=== PATIENT | female | born 1955 | race Caucasian/White ===

== ENCOUNTER → 2017-10-18 | Outpatient (CLI) | payer MEDICARE, OTHER ==
[~2017-10-18] MED LIST: ALFALFA600 MG PO; ALPRAZOLAM 0.50.5 M1 PO; ALPRAZOLAM PO; ALPRAZOLAM1 M1 PO; ANTIVERT25 MG PO; ASPIR 8181 MG PO; ASPIRIN EC81 M1 PO; ATORVASTATIN CA40 MG PO; AUGMENTIN 875875 M1 PO; AVELOX 400 MG400 MG OR; BACTRIM DS TAB1 EACH PO; BENTYL10 MG PO; BRILINTA90 MG PO; CALCIUM 600 +1 EAC1 PO; CALCIUM 600 +1 EAC9 PO; CALCIUM PO; CARISOPRODOL 3350 M1 PO; CARISOPRODOL 3350 MG PO; CATAPRES-TTS 10.1 M1 TRANSDERM; CELEXA 20 MG TA20 M1 PO; CELEXA 20 MG TA20 MG PO; CELEXA20 MG PO; CELEXA40 MG PO; CYMBALTA60 MG PO; DICLOFENAC SODI75 M1 PO; DICLOFENAC SODI75 MG PO; DICYCLOMINE HCL10 MG PO; DOLOPHINE HCL5 MG PO; DOXEPIN 75 MG C75 M1 PO; DOXEPIN PO; DOXYCYCLINE 10100 M1 PO; FLAX OIL1000 MG PO; FLEXERIL PO; FUROSEMIDE 40 M40 M1 PO; FUROSEMIDE 40 M40 MG PO; GLUCOPHAGE500 MG PO; GLUCOSAMINE &1 EACH PO; HYDROCODONE-AP1 EA10 PO; IRON325 PO; K-DUR 20 MEQ T20 MEQ PO; LEVOTHYROXIN0.137 M1 PO; LINZESS145 MCG PO; LINZESS290 MCG PO; LISINOPRIL5 MG OR; LOPRESSOR 50 MG50 M1 PO; LOPRESSOR PO; LOPRESSOR50 PO; LYRICA100 MG PO; LYRICA150 MG PO; METHADONE HCL5 MG PO; MULTIVITAMINS PO; NEPHROCAPS SOFT1 CAP; NITROGLYCERIN0.4 MG SUBLING; OMEPRAZOLE PO; ONDANSETRON HCL4 M2 PO; OXYCODON-ACETA1 EAC1; OXYCODONE HCL15 MG PO; OXYCONTIN10 M1; PLAVIX 300 MG300 M1 PO; PRILOSEC 20 MG20 MG PO; PRILOSEC40 MG PO; RANITIDINE HCL300 M1 PO; RANITIDINE PO; RED YEAST RICE600 M1 PO; ROXICODONE15 M1 PO; SKELAXIN 800 M800 M1 PO; SKELAXIN PO; STOOL SOFTENER100 M1 PO; SYNTHROID150 MCG PO; TOPROL XL50 MG PO; VENTOLIN HFA 1818 GM INH; VIT D-3 PO; VITAMIN D-32000 UNIT PO; VITAMIN D250000 UNIT PO; VITAMIN E1000 UNI3 PO; VITAMIN E400 UNI6 PO; VITAMIN E400 UNIT PO; VITAMIN E600 UNIT PO; XANAX1 MG PO; ZANAFLEX4 MG PO
== END ==
LOC: M.RAD 09:25
DX: M81.0 Age-related osteoporosis without current pathological fracture (principal); M85.9 Disorder of bone density and structure, unspecified; M19.90 Unspecified osteoarthritis, unspecified site; E78.2 Mixed hyperlipidemia; I10 Essential (primary) hypertension; Z78.0 Asymptomatic menopausal state; Z98.61 Coronary angioplasty status

== ENCOUNTER → 2018-01-09 | Outpatient (CLI) | payer MEDICARE, OTHER | LOC: M.RAD 14:46 | DX: Z12.31 Encounter for screening mammogram for malignant neoplasm of breast (principal) ==

== ENCOUNTER → 2018-07-25 | Outpatient (CLI) | payer MEDICARE, OTHER ==
--- NOTE | 2018-07-25 13:44 | EXE ---
[place] [address] STRESS ECHOCARDIOGRAM Name: CHAI MAYES Room: [facility]#: [id number] Admission: 07/25/18 Attend Phys: Rico Dejesus MD Discharge: Date of : 59 Date of Service: 07/25/18 1343 Report #: [id number] THIS REPORT FOR: //name// APPROVED REPORT Study performed: 07/25/2018 11:26:50 Exam: Dobutamine Stress Echo Indication: CAD Patient Location: Out-Patient Stress Nurse: Rebecca Bell RN Supervising Physician: Jasiel Reyes MD Ht: 5 ft 3 in HR: 81 bpm BP: 139/97 mmHg Medical History Cardiac Risk Factors: Hyperlipidemia, HTN, Tobacco History (Current/Recent), FHX of CAD Procedure The patient underwent a Pharmacological Stress Test using Dobutamine. Blood pressure, heart rate, and EKG were monitored. An Echocardiogram was performed by actuarial technician in four stages in quad fashion. At peak stress, four selected images were obtained and placed side by side with resting images for comparison. Stress Test Details Stress Test: Pharmacological Stress Test using Dobutamine. Reason for pharmacologic stress test: physical limitation. HR Resting HR: 81 bpm Max Heart Rate (APMHR): 159 bpm Max HR Achieved: 143 bpm Target HR (85% APMHR): 135 bpm % of APMHR: 89 Recovery HR: 94 bpm HR response to stress: Normal HR response to stress BP Resting BP: 139/97 mmHg Max BP: 131/77 mmHg Recovery BP: 123/79 mmHg ECG Resting ECG: sinus rhythm left [place] [address] STRESS ECHOCARDIOGRAM Name: CHAI MAYES Room: [facility]#: [id number] Admission: 07/25/18 Attend Phys: Rico Dejesus MD Discharge: Date of : 59 Date of Service: 07/25/18 1343 Report #: [id number] Stress ECG: no ischemic st-f changes Clinical Reason for Termination: Completed protocol Pre-Stress Echo The resting Echocardiogram showed normal left ventricular contractility with an estimated Ejection Fraction of about 55-60%. Normal wall motion in all segments on baseline images. Post-Stress Echo The stress Echocardiogram showed normal left ventricular contractility with an estimated Ejection Fraction of about >70%. Normal augmentation of wall motion in all segments on post stress images. Conclusion Clinical Response: Non-ischemic Stress ECG Response: Non-ischemic Stress Echo Images: Non-ischemic Other Information Study Quality: Good <ELECTRONICALLY SIGNED> By: Jasiel Reyes MD, [facility] 07/25/18 1343 1343 42 Jasiel Reyes MD, FACC /INF
== END ==
LOC: M.CRD 10:36
DX: I25.10 Atherosclerotic heart disease of native coronary artery without angina pectoris (principal)

== ENCOUNTER → 2019-02-04 | Outpatient (CLI) | payer BC | LOC: M.RAD 01-10 14:00 | DX: Z12.31 Encounter for screening mammogram for malignant neoplasm of breast (principal) ==

== ENCOUNTER → 2019-04-02 | Outpatient (CLI) | payer BC | LOC: M.MRI 14:35 | DX: M48.061 Spinal stenosis, lumbar region without neurogenic claudication (principal); M43.16 Spondylolisthesis, lumbar region; M47.816 Spondylosis without myelopathy or radiculopathy, lumbar region; M89.38 Hypertrophy of bone, other site; M51.26 Other intervertebral disc displacement, lumbar region ==

== ENCOUNTER 2019-05-26 21:42 | Inpatient (IN) | payer BC ==
[~2019-05-26] VITALS: Ht 160 cm; Wt 104.3 kg
[2019-05-26 21:42] VITALS: BP 185/96
[~2019-05-26 21:42] MED LIST changes: -LEVOTHYROXIN0.137 M1 PO; +PRILOSEC OTC20 MG PO; +SYNTHROID137 MC1 PO
[2019-05-26] MEDS ORDERED: TOPROL XL25 MG PO (21:57)
[2019-05-26 22:13] LABS: ABSOLUTE BASOPHILS 0.1 thou/uL (0.0-0.2); ABSOLUTE EOSINOPHILS 0.6 thou/uL (0.0-0.7); ABSOLUTE MONOCYTES 0.6 thou/uL (0.0-1.2); ABSOLUTE NEUTROPHILS 5.7 thou/uL (1.6-8.1); BASOPHILS 1.4 %; EOSINOPHILS 6.4 %; HEMATOCRIT 32.1 % (37.0-47.0); HEMOGLOBIN 10.3 gm/dL (12.0-15.0); LYMPHOCYTES 22.4 %; MCH 27.1 pg (26.0-34.0); MCHC 32.2 g/dL (28.0-37.0); MCV 84.3 fL (80.0-100.0); MONOCYTES 7.1 %; MPV 6.9 fl. (7.2-11.1); NUCLEATED RBCS 0 /100WBC; PLATELET COUNT* 363 thou/uL (150-400); POLYS 62.7 %; RBC 3.81 mil/uL (4.20-5.00); RDW-CV 19.4 % (10.5-14.5)
[2019-05-26 22:20] LABS: ANION GAP 5 mmol/L (7-16); BUN 9 mg/dL (7-18); CALCIUM 8.8 mg/dL (8.5-10.1); CHLORIDE 98 mmol/L (98-107); CO2 30 mmol/L (21-32); CREATININE 0.9 mg/dL (0.6-1.3); GLUCOSE 98 mg/dL (70-99); POTASSIUM 4.5 mmol/L (3.5-5.1); SODIUM 133 mmol/L (136-145)
[2019-05-26 22:31] LABS: ALKALINE PHOSPHATASE 65 U/L (46-116); LIPASE 147 U/L (73-393); NT-PRO BRAIN NAT PEPTIDE 125 pg/mL (<300); SGOT 15 U/L (15-37); SGPT 28 U/L (30-65); TOTAL BILIRUBIN 0.3 mg/dL (<0.1-1.0); TOTAL PROTEIN 5.9 g/dL (6.4-8.2); TROPONIN-I LEVEL <0.06 ng/mL (<0.06)
[2019-05-26 23:42] VITALS: BP 132/73
[2019-05-26 23:45] VITALS: BP 146/64
[2019-05-27] VITALS: BP 107/59
--- NOTE | 2019-05-27 00:19 | NUR ---
PT ADMITTED TO ROOM 200 AT 2345. PT DENIES PAIN OR DISCOMFORT AT THIS TIME. VITAL SIGNS WITHIN NORMAL LIMITS. CALL LIGHT IN REACH, PT DEMONSTRATES PROPER USE.
[2019-05-27] MEDS ORDERED: CENTRUM SILVER1 EAC4 PO (00:45)
[2019-05-27] MEDS ORDERED: GABAPENTIN 100100 MG PO (00:47)
[2019-05-27] MEDS ORDERED: ZETIA10 MG PO (00:52)
[2019-05-27] MEDS ORDERED: CYCLOBENZAPRINE5 MG PO (00:54)
[2019-05-27] MEDS ORDERED: LEXAPRO 10 MG T10 M1 PO (00:55)
--- NOTE | 2019-05-27 00:58 | NUR ---
MEDICATION RECONCILIATION COPLETED. DR RODRÍGUEZ PAGED PER PT REQUEST FOR NIGHT TIME MEDS INCLUDING XANAX, METOPROLOL, CYCLOBENZAPRINE, GABAPENTIN AND DICLOFENAC.
--- NOTE | 2019-05-27 01:13 | NUR ---
SECOND PAGE SENT THROUGH ANSWERING SERVICE FOR DR RODRÍGUEZ.
[2019-05-27 03:55] VITALS: BP 129/77
--- NOTE | 2019-05-27 06:07 | NUR ---
NO CHEST APIN, PRESSURE OR SHORTNESS OF AIR DURING SHIFT. PT NPO AFTER MIDNIGHT FOR CARDIOLOGY CONSULT THIS AM. VITAL SIGNS WITHIN NORMAL LIMITS, SINUS RHYTHM ON MONITOR. NO ACUTE CHANGES, WILL CONTINUE TO MONITOR.
--- NOTE | 2019-05-27 07:15 | NUR ---
CHANGE OF SHIFT, BEDSIDE REPORT GIVEN PATIENT SEEN AT BEDSIDE, IN BED AND RESTING ASSUMED PATIENT CARE
[2019-05-27 08:00] VITALS: BP 125/67
[2019-05-27 09:25] LABS: CHOLESTEROL 201 mg/dL (<200); HDL CHOLESTEROL 58 mg/dL (>40); LDL CHOLESTEROL 118 mg/dL (<100); SERUM ASSESSMENT Clear; TC:HDL 3.5 Ratio (Not establshd); TRIGLYCERIDE 126 mg/dL (<150); VLDL 25 mg/dL (<40)
--- NOTE | 2019-05-27 11:11 | EKG ---
[place] [address] ELECTROCARDIOGRAM REPORT Name: CHAI MAYES Room: [address] ADM IN M.R.#: [id number] Admission: 05/26/19 Attend Phys: Amara Byrd MD Discharge: Date of : 59 Report #: [id number] THIS REPORT FOR: //name// [facility] ED Test Date: 2019-05-26 Test Time: 21:45:36 Pat Name: CHAI MAYES Department: Room: [facility] Gender: F Cattle Tester: : 1955 Requested By: Cheryl Daugherty Order Number: [id number] MD: Rico Dejesus Measurements Intervals [place] Rate: 69 P: 0 [place]: 196 QRS: -43 QRSD: 106 T: 36 QT: 397 QTc: 426 Interpretive Statements Sinus rhythm Left anterior fascicular block Abnormal R-wave progression, early transition Baseline wander in lead(s) V5 Compared to ECG 10/17/2016 17:55:38 no change Electronically Signed On 05-27-2019 11:11:28 CDT by Rico Dejesus [email or web address] <ELECTRONICALLY SIGNED> By: Rico Dejesus MD, FAC 05/27/19 1111 2145 2145 Rico Dejesus MD, [facility] /EPI
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
--- NOTE | 2019-05-27 11:39 | EKG ---
[place] [address] ELECTROCARDIOGRAM REPORT Name: CHAI MAYES Room: [address] ADM IN M.R.#: [id number] Admission: 05/26/19 Attend Phys: Amara Byrd MD Discharge: Date of : 59 Report #: [id number] THIS REPORT FOR: //name// [facility] Test Date: 2019-05-27 Test Time: 06:12:35 Pat Name: CHAI MAYES Department: Room: [address] Gender: F Auto Body Man: CRISTOBAL : 1955 Requested By: Cheryl Daugherty Order Number: [id number] Bell MD: Rico Dejesus Measurements Intervals [place] Rate: 74 P: 17 IN: 176 QRS: -43 QRSD: 106 T: 23 QT: 436 QTc: 484 Interpretive Statements Sinus rhythm Left anterior fascicular block Electronically Signed On 05-27-2019 11:39:47 CDT by Rico Dejesus [email or web address] <ELECTRONICALLY SIGNED> By: Rico Dejesus MD, [facility] 05/27/19 1139 0612 1 Rico Dejesus MD, FACC /EPI
[2019-05-27 11:41] VITALS: BP 154/95
--- NOTE | 2019-05-27 14:36 | EXE ---
[place] [address] STRESS ECHOCARDIOGRAM Name: CHAI MAYES Room: [address] IN ..#: [id number] Admission: 05/26/19 Attend Phys: Amara Byrd MD Discharge: Date of : 59 Date of Service: 05/27/19 1436 Report #: [id number] THIS REPORT FOR: //name// APPROVED REPORT Study performed: 05/27/2019 13:02:47 Exam: Dobutamine Stress Echo Indication: Chest pain , Dyspnea Patient Location: In-Patient Stress Nurse: Leda Rogel RN Room #: 200 Supervising Physician: Rico Dejesus MD Ht: 5 ft 3 in HR: 74 bpm BP: 156/93 mmHg Medical History Cardiac Risk Factors: Hyperlipidemia, HTN, Tobacco History (Former), FHX of CAD Procedure The patient underwent a Pharmacological Stress Test using Dobutamine. Blood pressure, heart rate, and EKG were monitored. An Echocardiogram was performed by bicycle repair technician in four stages in quad fashion. At peak stress, four selected images were obtained and placed side by side with resting images for comparison. Echo Enhancing Agent Indication: Endocardial border delineation Agent(s) / Amount(s) Used: Optison 10 cc Stress Test Details Stress Test: Pharmacological Stress Test using Dobutamine. Reason for pharmacologic stress test: physical limitation. HR Resting HR: 74 bpm Max Heart Rate (APMHR): 158 bpm Max HR Achieved: 143 bpm Target HR (85% APMHR): 134 bpm % of APMHR: 90 Recovery HR: 88 bpm HR response to stress: Normal HR response to stress BP Resting BP: 156/93 [place] [address] STRESS ECHOCARDIOGRAM Name: CHAI MAYES Room: [address]#: [id number] Admission: 05/26/19 Attend Phys: Amara Byrd MD Discharge: Date of : 59 Date of Service: 05/27/19 1436 Report #: [id number] Max BP: 171/72 mmHg Recovery BP: 140/80 mmHg BP response to stress: Normal blood pressure response to stress. ECG Resting ECG: Left axis deviation Stress ECG: Sinus Tachycardia ST Change: Normal Maximum ST Deviation: 0 mm Arrhythmia: None Recovery ECG: Left axis deviation Recovery ST Change: Normal Recovery ST Deviation: 0 mm Recovery Arrhythmia: None Clinical Reason for Termination: Completed protocol Pre-Stress Echo The resting Echocardiogram showed normal left ventricular contractility with an estimated Ejection Fraction of about 55-60%. Post-Stress Echo The stress Echocardiogram showed normal left ventricular contractility with an estimated Ejection Fraction of about 65-70%. Compared to rest, there were no stress-induced wall motion abnormalities. Conclusion Clinical Response: Ischemic Stress ECG Response: Non-ischemic Stress Echo Images: Non-ischemic low risk dobutamine stress echo for predicting future cardiac events. Other Information Study Quality: Fair <Conclusion> low risk dobutamine stress echo for predicting future cardiac events. <ELECTRONICALLY SIGNED> By: Rico Dejesus MD, [facility] 05/27/19 1436 1436 1436 Rico Dejesus MD, FACC /INF
[2019-05-27 15:01] VITALS: BP 154/95
== END 2019-05-27 15:15 | disposition home or self-care (01) | DRG 303 ==
LOC: M.ERS 21:42 → M.TBA-ER 22:43 → M.2W 22:43
PROVIDERS: Personal Emergency Response Attendant; Registered Nurse; ADMIT Family Medicine
DX: I25.110 Atherosclerotic heart disease of native coronary artery with unstable angina pectoris (principal); Z68.41 Body mass index [BMI] 40.0-44.9, adult; K21.9 Gastro-esophageal reflux disease without esophagitis; M19.90 Unspecified osteoarthritis, unspecified site; J45.909 Unspecified asthma, uncomplicated; I10 Essential (primary) hypertension; G89.29 Other chronic pain; M54.9 Dorsalgia, unspecified; I44.4 Left anterior fascicular block; E78.00 Pure hypercholesterolemia, unspecified; E66.01 Morbid (severe) obesity due to excess calories; E78.5 Hyperlipidemia, unspecified; F41.9 Anxiety disorder, unspecified; G47.30 Sleep apnea, unspecified; Z91.81 History of falling; Z87.01 Personal history of pneumonia (recurrent); Z92.3 Personal history of irradiation; Z90.12 Acquired absence of left breast and nipple; Z95.5 Presence of coronary angioplasty implant and graft; Z87.891 Personal history of nicotine dependence; Z85.3 Personal history of malignant neoplasm of breast; Z85.841 Personal history of malignant neoplasm of brain; Z88.8 Allergy status to other drugs, medicaments and biological substances; Z91.013 Allergy to seafood; Z79.899 Other long term (current) drug therapy; Z79.82 Long term (current) use of aspirin

== ENCOUNTER 2019-06-03 01:34 | Inpatient (IN) | payer BC ==
[2019-06-03] VITALS (60 sets, daily range): BP systolic 56–141; BP diastolic 35–116
[~2019-06-03] VITALS: Ht 160 cm; Wt 109.6 kg
[~2019-06-03 01:34] MED LIST changes: +CENTRUM SILVER1 EAC4 PO; +CYCLOBENZAPRINE5 MG PO; +GABAPENTIN 100100 MG PO; +LEXAPRO 10 MG T10 M1 PO; +TOPROL XL25 MG PO; +ZETIA10 MG PO
[2019-06-03 02:17] LABS: HEMOGLOBIN 10.9 gm/dL (12.0-15.0); MCHC 31.2 g/dL (28.0-37.0); MCV 86.5 fL (80.0-100.0); MPV 7.4 fl. (7.2-11.1); NUCLEATED RBCS 0 /100WBC; PLATELET COUNT* 307 thou/uL (150-400); RBC 4.04 mil/uL (4.20-5.00); RDW-CV 18.7 % (10.5-14.5); WBC 9.5 thou/uL (4.0-11.0)
[2019-06-03 02:20] LABS: ANION GAP 11 mmol/L (7-16); BUN 19 mg/dL (7-18); CALCIUM 7.5 mg/dL (8.5-10.1); CHLORIDE 105 mmol/L (98-107); CO2 25 mmol/L (21-32); CREATININE 1.6 mg/dL (0.6-1.3); GLUCOSE 151 mg/dL (70-99); SODIUM 141 mmol/L (136-145)
[2019-06-03 02:23] LABS: INR 1.2; PROTIME 12.5 Seconds (9.20-11.50)
[2019-06-03 02:30] LABS: ALBUMIN 2.5 g/dL (3.4-5.0); ALKALINE PHOSPHATASE 101 U/L (46-116); LIPASE 77 U/L (73-393); NT-PRO BRAIN NAT PEPTIDE 1168 pg/mL (<300); SGOT 22 U/L (15-37); SGPT 31 U/L (30-65); TOTAL BILIRUBIN 0.4 mg/dL (<0.1-1.0); TOTAL PROTEIN 5.8 g/dL (6.4-8.2); TROPONIN-I LEVEL <0.06 ng/mL (<0.06)
[2019-06-03 02:36] LABS: URINE BILIRUBIN NEGATIVE (Negative); URINE BLOOD 3+ (Negative); URINE CLARITY SL CLOUDY; URINE COLOR YELLOW; URINE GLUCOSE-RANDOM TRACE (Negative); URINE KETONES NEGATIVE (Negative); URINE PROTEIN 3+ (Negative); URINE SPECIFIC GRAVITY 1.015 (1.005-1.030)
[2019-06-03 02:40] LABS: URINE LEUKOCYTES-REFLEX 3+ (Negative); URINE NITRITE-REFLEX POSITIVE (Negative)
[2019-06-03 02:57] LABS: ABSOLUTE BASOPHILS 0.1 thou/uL (0.0-0.2); ABSOLUTE LYMPHOCYTES 0.6 thou/uL (0.8-5.3); ABSOLUTE MONOCYTES 0.3 thou/uL (0.0-1.2); ABSOLUTE NEUTROPHILS 8.6 thou/uL (1.6-8.1)
[2019-06-03 02:58] LABS: CLUMPED PLTS OCCASIONAL; PLATELET ESTIMATE ADEQUATE
[2019-06-03 02:59] LABS: ANISOCYTOSIS 1+
[2019-06-03 03:03] LABS: HYALINE CASTS 0-3 Few /LPF (None Seen); SQUAMOUS 4-10 Moderate /LPF (0-3); URINE WBC-REFLEX >25 Many /HPF (0-5)
[2019-06-03 03:04] LABS: BACTERIA-REFLEX >30 Many /HPF (None Seen); CRYSTALS None Seen /LPF (None Seen); URINE RBC >20 Many /HPF (0-2)
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
[2019-06-03 08:28] LABS: AMP/METHAMP Negative (Negative); BARBITURATES Negative (Negative); BENZODIAZEPINES POSITIVE (Negative); COCAINE Negative (Negative); METHADONE Negative (Negative); OPIATES Negative (Negative); PCP Negative (Negative); THC Negative (Negative)
--- NOTE | 2019-06-03 09:48 | EKG ---
[place] [address] ELECTROCARDIOGRAM REPORT Name: CHAI MAYES Room: [address] ADM IN M.R.#: [id number] Admission: 06/03/19 Attend Phys: Meghann Blue MD Discharge: Date of : 59 Report #: [id number] THIS REPORT FOR: //name// [facility] ED Test Date: 2019-06-03 Test Time: 02:00:06 Pat Name: CHAI MAYES Department: Room: [facility] Gender: F Precipitator Operator: : 1955 Requested By: Delia Blair Order Number: [id number] MD: Rico Dejesus Measurements Intervals [place] Rate: 86 P: 12 ID: 174 QRS: -39 QRSD: 105 T: 47 QT: 377 QTc: 451 Interpretive Statements Sinus rhythm left axis Abnormal R-wave progression, late transition Left ventricular hypertrophy Baseline wander in lead(s) V4 Compared to ECG 05/27/2019 06:12:35 Left ventricular hypertrophy now present Electronically Signed On 06-03-2019 9:47:50 CDT by Rico Dejesus [email or web address] <ELECTRONICALLY SIGNED> By: Rico Dejesus MD, [facility] 06/03/19 0947 0200 0200 Rico Dejesus MD, [facility] /EPI
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
[2019-06-03 13:22] LABS: MAGNESIUM 1.6 mg/dL (1.8-2.4); POTASSIUM 3.9 mmol/L (3.5-5.1)
[2019-06-04] VITALS (51 sets, daily range): BP systolic 61–155; BP diastolic 40–104
[2019-06-04 05:27] LABS: ABSOLUTE BASOPHILS 0.1 thou/uL (0.0-0.2); ABSOLUTE EOSINOPHILS 0.4 thou/uL (0.0-0.7); ABSOLUTE MONOCYTES 0.8 thou/uL (0.0-1.2); ABSOLUTE NEUTROPHILS 16.3 thou/uL (1.6-8.1); BASOPHILS 0.3 %; EOSINOPHILS 2.2 %; HEMOGLOBIN 9.1 gm/dL (12.0-15.0); LYMPHOCYTES 5.6 %; MCH 26.7 pg (26.0-34.0); MCHC 31.2 g/dL (28.0-37.0); MCV 85.7 fL (80.0-100.0); MONOCYTES 4.3 %; NUCLEATED RBCS 0 /100WBC; POLYS 87.6 %; RBC 3.39 mil/uL (4.20-5.00); WBC 18.6 thou/uL (4.0-11.0)
[2019-06-04 05:29] LABS: CREATININE 1.3 mg/dL (0.6-1.3); POTASSIUM 4.3 mmol/L (3.5-5.1)
[2019-06-04 05:33] LABS: PLATELET COUNT* 189 thou/uL (150-400)
--- NOTE | 2019-06-04 06:03 | NUR ---
TMAX 100.8F, TYLENOL X2. PAIN MED FOR HEADACHE, PT REPORTS SHE HAS MIGRAINES. WAS ABLE TO SLEEP THROUGH MOST OF THE NIGHT FOLLOWING TREATMENT. LEVOPHED GTT TITRATED DOWN TO 3MCG/MIN. NSR ON THE MONITOR. 3800CC UOP, YELLOW WITH SOME SEDIMENTS. DRINKS A LOT OF WATER, REPORTS HER SALIVARY GLANDS WERE TAKEN OUT AND HER MOUTH IS ALWAYS DRY. CALL LIGHT WITHIN REACH.
--- NOTE | 2019-06-04 10:33 | EKG ---
[place] [address] ELECTROCARDIOGRAM REPORT Name: HCAI MAYES Room: [address] ADM IN M.R.#: [id number] Admission: 06/03/19 Attend Phys: Meghann Blue MD Discharge: Date of : 59 Report #: [id number] THIS REPORT FOR: //name// [facility] ED Test Date: 2019-06-04 Test Time: 09:58:20 Pat Name: CHAI MAYES Department: Room: [address] Gender: F Research Associate Quality Control Qc: : 1955 Requested By: Dean Keys Order Number: [id number] Bell MD: Rico Dejesus Measurements Intervals [place] Rate: 92 P: 8 [place]: 168 QRS: -35 QRSD: 104 T: 36 QT: 378 QTc: 468 Interpretive Statements Sinus rhythm Left axis deviation Baseline wander in lead(s) V4 Compared to ECG 06/03/2019 02:00:06 Left ventricular hypertrophy no longer present Electronically Signed On 06-04-2019 10:33:07 CDT by Rico Dejesus [email or web address] <ELECTRONICALLY SIGNED> By: Rico Dejesus MD, [facility] 06/04/19 1033 0958 0958 Rico Dejesus MD, [facility] /EPI
--- NOTE | 2019-06-04 11:32 | CON ---
[address] [address] CONSULTATION Name: CHAI MAYES Room: [address] IN M.R.#: [id number] Admission: 06/03/19 Attend Phys: Meghann Blue MD Discharge: Date of : 59 Report #: [id number] THIS REPORT FOR: //name// CC: Meghann Blue Arleen Moreno DATE OF SERVICE: 06/03/2019 INFECTIOUS DISEASE CONSULTATION ATTENDING PHYSICIAN: Meghann Blue MD REASON FOR EVALUATION: Fevers, complicated urinary tract infection, possible occult source of infection. HISTORY OF PRESENT ILLNESS: Chart reviewed, patient examined. This is a 64-year-old with history of breast carcinoma excess of a decade ago, who was admitted through the Emergency Room after been hospitalized earlier this month. She had experienced falls resulting in some lower pelvic and back pain and underwent pain management. Subsequently, had additional fall. She denies syncopal episode, but over the course of the last 2-3 days prior to admission, she had experienced more frequency and burning in urination. She did take some Azo which she has had in the past, but that was not beneficial. She then developed some nausea and not certain, had some chills and sweats, although she had fevers. She had not taken her temperature. She was found to be hypotensive with systolics in the 80s. Evaluation including films of the lumbar vertebra, no acute findings. Lactic acid of 2.5, which peaked at 2.7 and repeat was 1.3. Chest x-ray showed cardiomegaly without infiltrate. Electrolytes; sodium 141, also creatinine 1.6. LFTs were normal. CBC; white count was 9.5. She was anemic, hemoglobin of 10.9. Urinalysis did show marked pyuria, marked bacteriuria with moderate squamous cells, 3+ leukocyte, 3+ blood, 3+ protein. Urine and blood cultures are pending. Empirically started on therapy with vancomycin, piperacillin and tazobactam. At this point, she is somewhat slow to answer, although she is generally lucid. She is on supplemental oxygen. She notes, which she uses at home with 2 liters at night, although overall her breathing has been stable. She has had some difficulties recently with hemorrhoids, difficulty due to constipation with presuming the opioids. ALLERGIES: PREGABALIN. CURRENT MEDICATIONS: Include calcium carbonate, vancomycin, ezetimibe, enoxaparin, citalopram, metoprolol, levothyroxine, aspirin, Zosyn, oxycodone, cyclobenzaprine, gabapentin, p.r.n. nitroglycerin, pantoprazole, p.r.n. hydralazine, ondansetron as needed. PAST MEDICAL HISTORY: History of breast cancer, 12/2005, [place] [address] CONSULTATION Name: CHAI MAYES Room: [address] IN [facility]#: [id number] Admission: 06/03/19 Attend Phys: Meghann Blue MD Discharge: Date of : 59 Report #: [id number] radiation; history of hypertension, diverticulitis, history of pneumonia, left mastectomy, does have known atherosclerotic coronary artery disease, has previous stenting. SOCIAL HISTORY: Former smoker. No illicit drug use. Occasional ethanol. FAMILY HISTORY: Noncontributory. REVIEW OF SYSTEMS: Otherwise, unremarkable 10-point review of systems with exception of noted above in history of present illness. PHYSICAL EXAMINATION: GENERAL: She appears somewhat chronically ill, undernourished. She seems to be tracking well, although she is a little bit slow to respond, pace undernourished. VITAL SIGNS: Temperature 99, T-max 102.3, pulse 91, respirations 17, blood pressure 124/94. SKIN: Warm, dry, no rashes. HEENT: Normocephalic. Extraocular muscles intact. NECK: Supple. LUNGS: Few scattered crackles at the bases. HEART: Regular. Borderline tachycardic. I do not appreciate murmur. ABDOMEN: Soft, nontender, nondistended. She does have a ventral hernia. There are no peritoneal signs. GENITOURINARY AND RECTAL: Deferred. LABORATORY DATA: Drug screen positive for benzodiazepines. Chest x-ray shows cardiomegaly without acute process. CBC; white count of 9.5, H and H 10.9 and 35.0, platelets of 307, so a lymphocytopenia of 600. Electrolytes; sodium 141, potassium 3.0, chloride 105, bicarbonate is 25, anion gap of 11, BUN and creatinine 19 and 1.6, glucose of 151. Albumin of 2.5, total protein 5.8. ASSESSMENT: Complicated urinary tract infection. At this point, alive and certainly at risk for other sites. There is evidence of pneumonitis. We will await urine and blood cultures. Continue empiric therapy with piperacillin, tazobactam as well as vancomycin. Monitor expectantly. <ELECTRONICALLY SIGNED> By: Suleiman Caldwell MD 06/04/19 1132 1028 1159Joness Caldwell MD /nt
--- NOTE | 2019-06-04 16:35 | NUR ---
ASSUMED CARE OF PT AROUND 0715 THIS AM. REFER TO ASSESSMENT. GOALS WERE TO TITRATE OFF LEVO TOLERABLE. ATTEMPTED TO TURN OFF LEVO EARLIER THIS AFTERNOON AND PT DID NOT TOLERATE. PT HAS BEEN ON 1 MCG LEVO MOST OF THIS AFTERNOON, THEREFORE ATTEMPTED TO TRIAL OFF LEVO AT THIS TIME. CVP DC'D. GOAL FOR PAIN MANAGEMENT DIFFICULT D/T CHRONIC BACK PAINS AND HEADACHE. PT HAS BEEN SLIGHTLY FEBRILE MOST THIS SHIFT WITH ADMINISTRATION OF PRN TYLENOL ORDERED. PT WEARS 2L/NC OXYGEN PRN AND THAT IS HER HOME DOSE. NOTED THAT PT HAD AN EPISODE OF CHEST PAIN, ANXIETY, AND FEELINGS OF IMPENDING DOOM ABOUT A MINUTE AFTER ADMINISTRATION OF IV VANC. PT NOTED TO HAVE MULTIPLE PVC'S DURING EPISODE WELL. EKG IN CHART. PHYSICIAN NOTIFIED AND ORDERED IV BENEDRYL AND DECREASE RATE OF IV VANC. ATTEMPTED ADMINISTRATION OF VANC AFTER BENEDRYL EFFECTIVE AND PT REPORTED SAME "FEELINGS" AT THAT TIME. NOTIFIED ID PHYSICIAN AND HE DC'D VANC. VANCOMYCIN CHARTED ALLERGY NOW. FAMILY AT BEDSIDE. NO OTHER CONCERNS AT THIS TIME. TOLERATING DIET. CLWR. WCTM.
[2019-06-05] VITALS (19 sets, daily range): BP systolic 102–147; BP diastolic 47–91
[2019-06-05 03:38] LABS: ABSOLUTE EOSINOPHILS 0.2 thou/uL (0.0-0.7); ABSOLUTE LYMPHOCYTES 0.6 thou/uL (0.8-5.3); ABSOLUTE MONOCYTES 0.4 thou/uL (0.0-1.2); ABSOLUTE NEUTROPHILS 7.1 thou/uL (1.6-8.1); BASOPHILS 0.5 %; EOSINOPHILS 2.3 %; HEMATOCRIT 26.2 % (37.0-47.0); HEMOGLOBIN 8.3 gm/dL (12.0-15.0); LYMPHOCYTES 6.9 %; MCH 26.9 pg (26.0-34.0); MCHC 31.5 g/dL (28.0-37.0); MCV 85.2 fL (80.0-100.0); MONOCYTES 5.1 %; MPV 7.9 fl. (7.2-11.1); NUCLEATED RBCS 0 /100WBC; PLATELET COUNT* 159 thou/uL (150-400); POLYS 85.2 %; RBC 3.08 mil/uL (4.20-5.00); RDW-CV 19.1 % (10.5-14.5); WBC 8.3 thou/uL (4.0-11.0)
[2019-06-05 03:53] LABS: ALBUMIN 1.6 g/dL (3.4-5.0); CREATININE 1.1 mg/dL (0.6-1.3); POTASSIUM 4.1 mmol/L (3.5-5.1); TOTAL BILIRUBIN 0.3 mg/dL (<0.1-1.0); TOTAL PROTEIN 4.9 g/dL (6.4-8.2)
--- NOTE | 2019-06-05 04:49 | NUR ---
VITALS STABLE, LEVO OFF THROUGH THE NIGHT. PATIENT SLEEPING THROUGH THE NIGHT. SINUS TACH ON THE MONITOR. TEMP MAX 100.8F, CURRENTLY AT 99.1F WITH TYLENOLX2 AND A FAN. OTHERWISE UNEVENTFUL NIGHT. CALL LIGHT WITHIN REACH.
--- NOTE | 2019-06-05 20:00 | NUR ---
TRANSFERRED FROM ICU PER W/C AT 1940. TELEMETRY APPLIED SHOWING A-FIB. PT PLEASANT AND TALKATIVE. NO COMPLAINT VOICED. WILL CONT TO MONITOR AND ASSIST NEEDED.
[2019-06-06] VITALS: BP 146/92
[2019-06-06 04:00] VITALS: BP 147/90
[2019-06-06 05:08] LABS: ABSOLUTE EOSINOPHILS 0.1 thou/uL (0.0-0.7); ABSOLUTE LYMPHOCYTES 0.6 thou/uL (0.8-5.3); ABSOLUTE MONOCYTES 0.5 thou/uL (0.0-1.2); BASOPHILS 0.7 %; EOSINOPHILS 1.4 %; HEMATOCRIT 26.9 % (37.0-47.0); HEMOGLOBIN 8.5 gm/dL (12.0-15.0); LYMPHOCYTES 14.3 %; MCH 26.5 pg (26.0-34.0); MCHC 31.7 g/dL (28.0-37.0); MCV 83.7 fL (80.0-100.0); MONOCYTES 12.7 %; MPV 8.3 fl. (7.2-11.1); NUCLEATED RBCS 0 /100WBC; PLATELET COUNT* 151 thou/uL (150-400); POLYS 70.9 %; RBC 3.21 mil/uL (4.20-5.00); RDW-CV 19.6 % (10.5-14.5); WBC 4.3 thou/uL (4.0-11.0)
[2019-06-06 05:40] LABS: ALBUMIN 1.7 g/dL (3.4-5.0); CALCIUM 7.9 mg/dL (8.5-10.1); CREATININE 1.2 mg/dL (0.6-1.3); POTASSIUM 3.7 mmol/L (3.5-5.1); TOTAL BILIRUBIN 0.4 mg/dL (<0.1-1.0); TOTAL PROTEIN 5.5 g/dL (6.4-8.2)
[2019-06-06 05:46] LABS: PREALBUMIN 8.6 mg/dL (18.0-35.7)
--- NOTE | 2019-06-06 06:46 | NUR ---
AWAKE OCC DURING NIGHT. ASSISTED TO BR AND BACK WITH SLOW STEADY GAIT. TEMP ELEVATED WITH TYLENOL GIVEN. PO PAIN MED GIVEN X1 FOR C/O JANE, EFFECTIVE. NO CHANGE IN ASSESSMENT. HS GOALS OF REST AND SAFETY ACHIEVED. HOURLY ROUNDING OBSERVED.
[2019-06-06 07:30] VITALS: BP 139/82
--- NOTE | 2019-06-06 10:26 | NUR ---
PT A/O. TELE TRACKING SR AND ALL VSS ON ROOM AIR. DENIES CP, SOA. DOES C/O MINIMAL SORE THROAT- ORDER FOR THROAT SPRAY OBTAINED. UP TO CHAIR THIS AM FOR BREAKFAST. FAMILY AT BEDSIDE. EDUCATED ON SAFETY AND PLAN OF CARE. PLEASE SEE ASSESSMENT FOR ADDITIONAL INFORMATION. WILL CONT TO MONITOR
[2019-06-06 11:57] VITALS: BP 120/78
--- NOTE | 2019-06-06 12:52 | NUR ---
Nutrition: Pt assessed for high BMI. Admitted with UTI, nausea. Fair appetite. Regular diet. Supplement ordered for all meals. Albumin 1.7, prealb 8.6. Wt: 244#. Severely depleted protein stores. GOALS: continue supplement for added nutrition/protein, >75% of meals/supplements consumed. Mild to low risk.
[2019-06-06 15:58] VITALS: BP 155/89
--- NOTE | 2019-06-06 15:58 | NUR ---
PT discussed need for rolling walker for pt. SW called [facility] and spoke with Luanne who provided approval for pt to receive rolling walker. SW to fax order, PT to issue upon dc day. PT also recommending HH if pt will accept and/or private duty services as needed. SW to continue to follow to assist with safe dc planning.
--- NOTE | 2019-06-06 18:10 | NUR ---
NO CHANGES NOTED IN ASSESSMENT. PT REFUSED XRAY (KNEE) THIS AFTERNOON WHILE DOWN AT CT- STATES THIS IS NOT WHERE HER PAIN IS COMING FROM. EDUCATED PT THAT IT MAY BE CAUSE OF ANKLE/FOOT PAIN. T MAX THIS SHIFT 101.2- 98.5 AFTER APAP. WILL CONT TO MONITOR
[2019-06-06 20:00] VITALS: BP 136/79
[2019-06-07] VITALS: BP 140/88
[2019-06-07 04:00] VITALS: BP 150/93
--- NOTE | 2019-06-07 05:32 | NUR ---
ASSUMED CARE OF PT AFTER REPORT AT 1930. PT A&OX4. VSS. PHYSICAL ASSESSMENT COMPLETED AND CHARTED. PT ON RA/O2 WHEN SLEEPING. PT TRACING SR ON TELE. PT UP STANDBY TO RESTROOM. PT RIGHT IJ PATENT AND INTACT. PT COMPLAINED OF SHOULDER PAIN-MEDS GIVEN PER MAR. PT ABLE TO SLEEP WELL ON BED. CALL LIGHT WITHIN REACH.
[2019-06-07 08:00] VITALS: BP 154/90
[2019-06-07 11:37] VITALS: BP 136/80
[2019-06-07 15:24] VITALS: BP 138/83
--- NOTE | 2019-06-07 19:00 | NUR ---
RECEIVED REPORT FROM XIAO PHILIP. ASSUMED CARE OF PT AROUND 0730. PT A&OX4. VSS, EXCEPT PT WITH LOW FEVER OF 100.9 THIS AFTERNOON - TYLENOL GIVEN. AM ASSESSMENT AND VITALS COMPLETED CHARTED. RIGHT IJ TRIPLE LUMEN INTACT. MEDS PER EMAR. PT UP WITH SBA TO BATHROOM TO VOID. NO BM THIS SHIFT. PT REPORTED SHOULDER PAIN THAT WAS TREATED WITH PO PAIN MEDICATION WITH PARTIAL RELIEF THIS AFTERNOON. PT HAD VISITORS IN AND OUT. PT WORKED WITH P.T. - RIGHT FOOT DROP NOTED, BUT PT REFUSED ORTHOTIC TREATMENT. PT CURRENTLY SITTING IN BEDSIDE CHAIR. CALL LIGHT IS WITHIN REACH, HOURLY ROUNDING PERFORMED. CALL LIGHT IS WITHIN REACH.
[2019-06-07 20:00] VITALS: BP 120/76
[2019-06-08] VITALS: BP 150/83
[2019-06-08 05:53] LABS: HEMATOCRIT 24.7 % (37.0-47.0); HEMOGLOBIN 7.8 gm/dL (12.0-15.0); MCH 26.5 pg (26.0-34.0); MCHC 31.5 g/dL (28.0-37.0); MPV 8.1 fl. (7.2-11.1); NUCLEATED RBCS 0 /100WBC; PLATELET COUNT* 212 thou/uL (150-400); RBC 2.94 mil/uL (4.20-5.00); RDW-CV 19.1 % (10.5-14.5); WBC 6.1 thou/uL (4.0-11.0)
[2019-06-08 06:51] LABS: ABSOLUTE EOSINOPHILS 0.1 thou/uL (0.0-0.7); ABSOLUTE LYMPHOCYTES 1.9 thou/uL (0.8-5.3); ABSOLUTE MONOCYTES 0.2 thou/uL (0.0-1.2); ATYPICAL LYMPHS 1 %; PLATELET ESTIMATE ADEQUATE
[2019-06-08 07:24] LABS: ESR (SEDRATE) 100 mm/hr (0-30)
[2019-06-08 07:40] VITALS: BP 121/76
--- NOTE | 2019-06-08 07:48 | NUR ---
ASSUMED CARE OF PT AFTER REPORT AT 1930. PT A&OX4. VSS. PHYSICAL ASSESSMENT COMPLETED AND CHARTED. PT ON RA/O2 AT 2L NC WHEN SLEEPING. PT ON MEDSURG STATUS. PT UPSTANDBY TO RESTROOM. PT COMPLAINED OF SHOULDER PAIN-MEDS GIVEN PER DEC. PT ABLE TO SLEEP WELL ON BED. CALL LIGHT WITHIN REACH.
--- NOTE | 2019-06-08 10:55 | NUR ---
PATIENT REC'D FROM 2ND FLOOR TO RM 106 PER WC W/ TELE FLOOR INSTALLATION MECHANIC PRESENT. PATIENT ALERT AND ORIENTED, CONVERSIVE. 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 STATES HAVING BRAIN TUMOR SURGERY IN 2011. RT IJ TRIPLE LUMEN NOTED WNL, SUTURES INTACT. ONLY WHITE PORT W/ +BLOOD RETURN. ALL PORTS FLUSH EASILY. PATIENT ORIENTED TO RM AND CALL LIGHT. USING FWW FOR AMBULATION INDEP IN RM. DENIES NURSING NEEDS CURRENTLY.
[2019-06-08 17:06] VITALS: BP 147/75
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
[2019-06-08 20:00] VITALS: BP 144/89
--- NOTE | 2019-06-08 20:51 | NUR ---
ASSUMED CARE OF PATIENT AT 1930. ASSESSMENT AT 1999. PATIENT IS ALERT AND ORIENTED X 4. AMBULATING TO BR WITH WALKER NURSE ENTERED ROOM. DUE TO RECENT FALL AT HOME AND HX OF NEUROPATHY OF FEET AND ARTHRITIS, REQUESTED THAT PATIENT CALL FOR SBA. PATIENT REFUSED. ALSO REFUSED TO HAVE BED ALARM SET AND GAIT BELT. PATIENT STATES SHE WAS GIVEN HER "WALKING PAPERS" YESTERDAY BY PHYSICIAN AND HAS BEEN UP INDEPENDENTLY SINCE THEN SHE IS AT HOME. DO NOTE APPROPRIATE USE OF WALKER AND STEADY GAIT. HOURLY ROUNDING. CONTINUE TO MONITOR.
[2019-06-09 04:10] VITALS: BP 119/82
--- NOTE | 2019-06-09 04:58 | NUR ---
PATIENT HAS REMAINED ALERT AND ORIENTED X 4 THROUGHOUT THE SHIFT AND RESTING QUIETLY ON HOURLY ROUNDS. PATIENT PER PREVIOUS NOTE DID NOT CALL WHEN SHE UP IN ROOM BUT THIS NURSE WAS ABLE TO BE PRESENT AT THESE TIMES WITH FREQUENT ROUNDING. STEADY GAIT WITH ROLLER WALKER. HIGHEST TEMPERATURE THIS SHIFT 99.1. OTHER VITAL SIGNS STABLE. MEDS PER ORDER. RT TX PER ORDER. CONTINUE TO MONITOR.
[2019-06-09 06:35] LABS: HEMATOCRIT 25.4 % (37.0-47.0); HEMOGLOBIN 8.1 gm/dL (12.0-15.0); MCH 26.6 pg (26.0-34.0); MCHC 31.8 g/dL (28.0-37.0); MCV 83.5 fL (80.0-100.0); MPV 8.2 fl. (7.2-11.1); RBC 3.05 mil/uL (4.20-5.00); RDW-CV 19.1 % (10.5-14.5); WBC 5.8 thou/uL (4.0-11.0)
[2019-06-09 06:59] LABS: CALCIUM 8.3 mg/dL (8.5-10.1); CREATININE 0.9 mg/dL (0.6-1.3); MAGNESIUM 1.9 mg/dL (1.8-2.4); POTASSIUM 3.9 mmol/L (3.5-5.1)
[2019-06-09 07:40] VITALS: BP 121/68
[2019-06-09 11:08] LABS: URINE BILIRUBIN NEGATIVE (Negative); URINE BLOOD TRACE (Negative); URINE CLARITY CLEAR; URINE COLOR YELLOW; URINE GLUCOSE-RANDOM NEGATIVE (Negative); URINE KETONES NEGATIVE (Negative); URINE LEUKOCYTES-REFLEX NEGATIVE (Negative); URINE NITRITE-REFLEX NEGATIVE (Negative); URINE PROTEIN NEGATIVE (Negative); URINE UROBILINOGEN 0.2 E.U./dl (0.2-1.0)
--- NOTE | 2019-06-09 18:48 | NUR ---
ASSUMED CARE OF PATIENT AT APPROX 0730. ALERT AND ORIENTED X4. ASSESSMENT COMPLETED AND CHARTED. VSS ON ROOM AIR. COMPLAINT OF PAIN AND MUSCLE SPASMS MANAGED WITH ORAL MEDICATIONS. ANTIBIOTIC INFUSED ORDERED. CENTRAL LINE IN RIGHT CHEST FLUSHES AND HAS BLOOD RETURN IN ALL PORTS. PATIENT UP AD PATTI WITH HER WALKER, AGREED TO CALL OUT FOR ASSISTANCE WHEN SHE IS HAVING IV ANTIBIOTICS INFUSED. DR BALDWIN ORDERED PATIENT CAN BE UP AD PATTI. REFUSING FALL PRECAUTIONS; YELLOW SOCKS AND BED ALARM. NO OTHER COMPLAINTS THIS SHIFT. CALL LIGHT CELESTINO [facility]I. HOURLY ROUNDS COMPLETED. CALL LIGHT WITHIN REACH. WILL CONTINUE TO MONITOR.
[2019-06-09 20:20] VITALS: BP 149/85
--- NOTE | 2019-06-10 06:32 | NUR ---
PATIENT HAS SLEPT WELL THROUGHOUT THE NIGHT. VSS. MEDICATIONS GIVEN ORDERED AND CHARTED. RIGHT CHEST TRIPLE LUMEN LINE-SALINE LOCKED. PATIENT REFUSES BED ALARM AND FALL PRECAUTIONS. PATIENT IS UP AD-PATTI TO THE BATHROOM WITH WALKER. PATIENT INSTRUCTED TO USE CALL LIGHT WHEN NEEDING ASSISTANCE. HOURLY ROUNDS MADE. WILL CONTINUE WITH PLAN OF CARE AND NURSING TO MONITOR.
[2019-06-10 07:25] VITALS: BP 136/79
[2019-06-10 10:38] VITALS: BP 136/79
[2019-06-10 10:51] VITALS: BP 136/79
[2019-06-10 11:40] VITALS: BP 136/79
--- NOTE | 2019-06-10 13:39 | NUR ---
PT.DISCHARGING TODAY. HAS ORDERS FOR PHYSICAL THERAPY. PT.PUT A CALL INTO HER FRIEND TO SEE WHO SHE HAD USED IN THE PAST. SHE HASN'T CALLED BACK. DAUGHTER IN LAW AT BEDSIDE. SHE RECOMMEDED [facility] TO PT. PT.WAS AGREEABLE. CHOICE OF VENDOR SIGNED AND PUT ON CHART. FAXED DISCHARGE SUMMARY AND FACE SHEET TO [facility]. PT.AWARE HH WILL CALL HER TOMORROW. [facility] TO DISPENSE A WALKER TO PT. PRIOR TO DISCHARGE. ORDER PLACED ON P.T. DESK.
--- NOTE | 2019-06-10 13:49 | NUR ---
This Rn agrees with the assessment of SN Renato for at 1346.
[2019-06-10 14:44] VITALS: BP 136/79
--- NOTE | 2019-06-10 14:45 | NUR ---
PT GIVEN DISCHARGE INFORMATION, CARE NOTES, AND PRESCRIPTIONS. CENTRAL LINE DISCONTINUED. PT REQUESTED DRESSING BE REMOVED PRIOR TO DISCHARGE. NO BLEEDING PRESENT, DRESSING WAS ON FOR OVER AN HOUR. PT BELONGINGS GATHERED. PT LEFT VIA WHEELCHAIR WITH NURSING STAFF TO HOME WITH HOME HEALTH.
== END 2019-06-10 14:46 | disposition home health service (06) | DRG 871 ==
LOC: M.ERS 01:34 → M.ICU 02:49 → M.TBA-ER 02:49 → M.ICU 02:49 → M.2W 06-05 20:03 → M.ORTHSURG 06-08 10:52
PROVIDERS: Emergency Medicine; Internal Medicine; Internal Medicine Infectious Disease; ADMIT Internal Medicine
PROC: 02HV33Z Insertion of Infusion Device into Superior Vena Cava, Percutaneous Approach (ICD-10-PCS; principal; 2019-06-03)
PROC: B548ZZA Ultrasonography of Superior Vena Cava, Guidance (ICD-10-PCS; principal; 2019-06-03)
DX: A41.9 Sepsis, unspecified organism (principal); N17.0 Acute kidney failure with tubular necrosis; J18.1 Lobar pneumonia, unspecified organism; R65.21 Severe sepsis with septic shock; N30.00 Acute cystitis without hematuria; D64.9 Anemia, unspecified; B96.20 Unspecified Escherichia coli [E. coli] as the cause of diseases classified elsewhere; E87.6 Hypokalemia; J02.9 Acute pharyngitis, unspecified; I10 Essential (primary) hypertension; I25.10 Atherosclerotic heart disease of native coronary artery without angina pectoris; K44.9 Diaphragmatic hernia without obstruction or gangrene; Z95.5 Presence of coronary angioplasty implant and graft; Z90.12 Acquired absence of left breast and nipple; Z92.3 Personal history of irradiation; Z92.21 Personal history of antineoplastic chemotherapy; Z88.8 Allergy status to other drugs, medicaments and biological substances; Z91.013 Allergy to seafood; Z85.3 Personal history of malignant neoplasm of breast; Z79.899 Other long term (current) drug therapy; Z79.82 Long term (current) use of aspirin; Z87.891 Personal history of nicotine dependence; G89.29 Other chronic pain; M54.9 Dorsalgia, unspecified

== ENCOUNTER → 2019-07-02 | Outpatient (CLI) | payer BC | LOC: M.MRI 15:47 | DX: I67.82 Cerebral ischemia (principal); D47.3 Essential (hemorrhagic) thrombocythemia; R41.0 Disorientation, unspecified; Z95.3 Presence of xenogenic heart valve; Z85.3 Personal history of malignant neoplasm of breast; Z98.890 Other specified postprocedural states ==

== ENCOUNTER 2020-05-06 17:00 | Emergency (ER) | payer BC ==
[~2020-05-06] VITALS: Ht 160 cm; Wt 103.9 kg
[2020-05-06] MEDS ORDERED: KEPPRA XR500 MG PO (17:27)
[2020-05-06 19:53] LABS: URINE BILIRUBIN 1+ (Negative); URINE BLOOD TRACE (Negative); URINE CLARITY CLOUDY; URINE COLOR DARK YELLOW; URINE GLUCOSE-RANDOM TRACE (Negative); URINE KETONES 2+ (Negative); URINE LEUKOCYTES-REFLEX 3+ (Negative); URINE NITRITE-REFLEX POSITIVE (Negative); URINE PROTEIN 1+ (Negative)
[2020-05-06 19:55] LABS: ICTOTEST (BILI CONFIRMATORY) Negative (Negative)
[2020-05-06] MEDS ORDERED: KEFLEX500 M1 PO (19:57)
[2020-05-06 20:05] LABS: SQUAMOUS 0-3 Few /LPF (0-3); URINE RBC 3-10 Few /HPF (0-2); URINE WBC-REFLEX >25 Many /HPF (0-5)
[2020-05-06 20:06] LABS: BACTERIA-REFLEX >30 Many /HPF (None Seen); CASTS None Seen /LPF (None Seen); CRYSTALS None Seen /LPF (None Seen)
[2020-05-06 20:29] VITALS: BP 150/78
== END 2020-05-06 20:30 | disposition home or self-care (01) ==
LOC: M.ERS 17:00
PROVIDERS: Nurse Practitioner Family
DX: S69.91XA Unspecified injury of right wrist, hand and finger(s), initial encounter (principal); N39.0 Urinary tract infection, site not specified; I10 Essential (primary) hypertension; F17.210 Nicotine dependence, cigarettes, uncomplicated; Z91.013 Allergy to seafood; Z88.1 Allergy status to other antibiotic agents; Z91.018 Allergy to other foods; Z79.899 Other long term (current) drug therapy; Z95.5 Presence of coronary angioplasty implant and graft; Z98.890 Other specified postprocedural states; W01.0XXA Fall on same level from slipping, tripping and stumbling without subsequent striking against object, initial encounter; Y93.89 Activity, other specified; Y92.091 Bathroom in other non-institutional residence as the place of occurrence of the external cause; Y99.9 Unspecified external cause status

== ENCOUNTER → 2020-06-24 | Outpatient (CLI) | payer BC ==
[~2020-06-24] MED LIST changes: +KEFLEX500 M1 PO; +KEPPRA XR500 MG PO
== END ==
LOC: M.RAD 14:23
PROVIDERS: ATTEND Internal Medicine Hematology & Oncology
DX: Z12.31 Encounter for screening mammogram for malignant neoplasm of breast (principal)

== ENCOUNTER 2020-09-22 12:36 | Inpatient (IN) | payer BC ==
[~2020-09-22] VITALS: Ht 160 cm; Wt 113.9 kg
--- NOTE | ~2020-09-22 | CON ---
[address] [address] CONSULTATION Name: CHAI MAYES Room: [address] IN M.R.#: [id number] Admission: 09/22/20 Attend Phys: Dean Keys MD Discharge: Date of : 59 Report #: [id number] THIS REPORT FOR: cc: Arleen Moreno Linda J. DO Ranjan Mota MD DATE OF SERVICE: 09/22/2020 HISTORY OF PRESENT ILLNESS: This is a 65-year-old female patient who said she had an episode of numbness in the left upper extremity. It resolved by itself. She has a pretty involved history. She goes to pain center. She has pain at multiple spots. I reviewed her records in the computer. She did have MRI of the cervical spine sometime ago. Her epidural was in the middle back according to her, not in the cervical spine. REVIEW OF SYSTEMS: Indicate that she said all her symptoms have resolved. 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 She had craniotomy. She was put on Keppra, but she never had any seizure and it looks like it was for prophylaxis. She has a history of TIAs in the past. She took some nitroglycerin when this happened. Her history is pretty extensive. She has breast carcinoma, tibiofibular fracture, asthma, abdominal pain, endometrial ablation, prior history of smoking, chemotherapy, radiation therapy, hiatus hernia, diverticulosis, EGD, bilateral hip surgery, cardiac stent and brain surgery. PAST MEDICAL HISTORY: Positive for metastatic breast carcinoma. FAMILY HISTORY: Unremarkable. PHYSICAL EXAMINATION: NEUROLOGIC: Indicate this patient is alert, responsive, able to follow simple and complex command. She said her symptoms have resolved. I did not find anything focal on neuromuscular or cranial nerve examination. There is no meningeal sign on this patient. There is no carotid bruit. CARDIAC: Examination is unremarkable. GENERA: She is moderately built individual. She does not have any dysmorphic features of eyes, ears and face. LABORATORY DATA: Indicate a white count of 6.1. She did have a CT scan of the head and I ordered a carotid Doppler earlier, but that is not done yet. IMPRESSION: It is possible this patient had a transient ischemic attack. If that is excluded, we will exclude the possibility of spine problem. I discussed all with the patient and discussed her options in that regard [place] [address] CONSULTATION Name: CHAI MAYES Room: [address]#: [id number] Admission: 09/22/20 Attend Phys: Dean Keys MD Discharge: Date of : 59 Report #: [id number] follow this plan and we will do that. Thank you very much for this referral. By: [id number] Mota MD /cecilia
[2020-09-22 12:42] VITALS: BP 153/80
[2020-09-22 13:47] LABS: ABSOLUTE BASOPHILS 0.1 thou/uL (0.0-0.2); ABSOLUTE EOSINOPHILS 0.5 thou/uL (0.0-0.7); ABSOLUTE LYMPHOCYTES 1.5 thou/uL (0.8-5.3); ABSOLUTE MONOCYTES 0.6 thou/uL (0.0-1.2); ABSOLUTE NEUTROPHILS 3.3 thou/uL (1.6-8.1); BASOPHILS 2.3 %; HEMATOCRIT 39.1 % (37.0-47.0); HEMOGLOBIN 12.9 gm/dL (12.0-15.0); LYMPHOCYTES 25.1 %; MCH 31.5 pg (26.0-34.0); MCHC 32.9 g/dL (28.0-37.0); MCV 95.9 fL (80.0-100.0); MONOCYTES 9.4 %; MPV 6.9 fl. (7.2-11.1); NUCLEATED RBCS 0 /100WBC; PLATELET COUNT* 271 thou/uL (150-400); POLYS 54.2 %; RBC 4.08 mil/uL (4.20-5.00); RDW-CV 14.3 % (10.5-14.5); WBC 6.1 thou/uL (4.0-11.0)
[2020-09-22 13:56] LABS: CALCIUM 7.9 mg/dL (8.5-10.1); CREATININE 0.8 mg/dL (0.6-1.3); POTASSIUM 3.8 mmol/L (3.5-5.1)
[2020-09-22 13:58] LABS: PROTIME 10.9 Seconds (9.20-11.50)
[2020-09-22 14:01] LABS: ALBUMIN 3.1 g/dL (3.4-5.0); TOTAL BILIRUBIN 0.5 mg/dL (<0.1-1.0); TOTAL PROTEIN 6.2 g/dL (6.4-8.2)
--- NOTE | 2020-09-22 18:27 | EKG ---
[place] [address] ELECTROCARDIOGRAM REPORT Name: CHAI MAYES Room: [place] [address] ADM IN M.R.#: [id number] Admission: 09/22/20 Attend Phys: Dean Keys, Discharge: Date of : 59 Date of Service: 09/22/20 1330 Report #: [id number] THIS REPORT FOR: //name// [facility] ED Test Date: 2020-09-22 Test Time: 13:30:30 Pat Name: CHAI MAYES Department: Room: [facility] Gender: F Database Dba: : 1955 Requested By: Gilmar Dempsey Order Number: [id number] MD: Yuniel Anders Measurements Intervals [place] Rate: 79 P: 19 IN: 191 QRS: -44 QRSD: 104 T: 35 QT: 390 QTc: 448 Interpretive Statements Sinus rhythm Left anterior fascicular block Borderline T wave abnormalities Baseline wander in lead(s) V3 Compared to ECG 06/04/2019 09:58:20 Left anterior fascicular block now present T-wave abnormality now present Left-axis deviation no longer present Electronically Signed On 09-22-2020 18:26:55 UTILIZATION REVIEW NURSE by Yuniel Anders [email or web address] <ELECTRONICALLY SIGNED> By: Shannan Anders MD, [facility] 09/22/20 1826 29 29 Shannan Anders MD, [facility] /EPI
[2020-09-22 18:35] VITALS: BP 144/74
[2020-09-22 19:45] VITALS: BP 150/72
[2020-09-22 20:10] VITALS: BP 159/83
[2020-09-23] VITALS: BP 174/79
[2020-09-23 02:06] LABS: GLYCOHEMOGLOBIN (HGB A1C) 5.9 % (4.8-5.6)
[2020-09-23 04:00] VITALS: BP 170/90
[2020-09-23 04:34] LABS: ABSOLUTE BASOPHILS 0.1 thou/uL (0.0-0.2); ABSOLUTE EOSINOPHILS 0.5 thou/uL (0.0-0.7); ABSOLUTE LYMPHOCYTES 1.9 thou/uL (0.8-5.3); ABSOLUTE MONOCYTES 0.5 thou/uL (0.0-1.2); ABSOLUTE NEUTROPHILS 3.3 thou/uL (1.6-8.1); BASOPHILS 1.2 %; EOSINOPHILS 7.6 %; HEMATOCRIT 38.2 % (37.0-47.0); HEMOGLOBIN 12.6 gm/dL (12.0-15.0); LYMPHOCYTES 30.3 %; MCH 31.7 pg (26.0-34.0); MCHC 32.9 g/dL (28.0-37.0); MCV 96.2 fL (80.0-100.0); MONOCYTES 7.7 %; NUCLEATED RBCS 0 /100WBC; PLATELET COUNT* 287 thou/uL (150-400); POLYS 53.2 %; RBC 3.97 mil/uL (4.20-5.00); RDW-CV 14.6 % (10.5-14.5); WBC 6.2 thou/uL (4.0-11.0)
[2020-09-23 04:48] LABS: CALCIUM 8.4 mg/dL (8.5-10.1); CREATININE 0.8 mg/dL (0.6-1.3); POTASSIUM 3.8 mmol/L (3.5-5.1)
[2020-09-23 04:56] LABS: CHOLESTEROL 215 mg/dL (<200); HDL CHOLESTEROL 36 mg/dL (>40); LDL CHOLESTEROL 149 mg/dL (<100); SERUM ASSESSMENT Slight Lipemia; TRIGLYCERIDE 154 mg/dL (<150); VLDL 31 mg/dL (<40)
[2020-09-23] MEDS ORDERED: LEVOTHYROXINE125 MC1 PO (07:52)
[2020-09-23 08:00] VITALS: BP 155/89
[2020-09-23 13:17] VITALS: BP 155/89
== END 2020-09-23 13:45 | disposition home or self-care (01) | DRG 69 ==
LOC: M.ERS 12:36 → M.TBA-ER 14:24 → M.2W 14:24 → M.TBA-ER 14:24 → M.2W 19:48
PROVIDERS: Emergency Medicine; ADMIT Internal Medicine; ATTEND Internal Medicine
DX: G45.9 Transient cerebral ischemic attack, unspecified (principal); Z68.41 Body mass index [BMI] 40.0-44.9, adult; Z20.828 Contact with and (suspected) exposure to other viral communicable diseases; M47.9 Spondylosis, unspecified; G89.29 Other chronic pain; E66.01 Morbid (severe) obesity due to excess calories; G62.9 Polyneuropathy, unspecified; G47.33 Obstructive sleep apnea (adult) (pediatric); I10 Essential (primary) hypertension; Z95.5 Presence of coronary angioplasty implant and graft; Z90.12 Acquired absence of left breast and nipple; Z85.3 Personal history of malignant neoplasm of breast; Z92.3 Personal history of irradiation; Z92.21 Personal history of antineoplastic chemotherapy; Z87.81 Personal history of (healed) traumatic fracture; Z88.8 Allergy status to other drugs, medicaments and biological substances; Z88.1 Allergy status to other antibiotic agents; Z91.02 Food additives allergy status; Z91.013 Allergy to seafood; Z87.891 Personal history of nicotine dependence; Z79.891 Long term (current) use of opiate analgesic

== ENCOUNTER → 2021-02-23 | Outpatient (CLI) | payer BC ==
[~2021-02-23] MED LIST changes: +LEVOTHYROXINE125 MC1 PO; +LIPITOR40 MG PO
== END ==
LOC: M.MRI 13:28
PROVIDERS: ATTEND Psychiatry & Neurology Neuromuscular Medicine
DX: G31.9 Degenerative disease of nervous system, unspecified (principal); G93.89 Other specified disorders of brain; F03.90 Unspecified dementia, unspecified severity, without behavioral disturbance, psychotic disturbance, mood disturbance, and anxiety; F41.1 Generalized anxiety disorder; D49.6 Neoplasm of unspecified behavior of brain; I63.81 Other cerebral infarction due to occlusion or stenosis of small artery; Z98.890 Other specified postprocedural states

== ENCOUNTER 2021-04-07 14:22 | Emergency (ER) | payer BC ==
[~2021-04-07] VITALS: Ht 160 cm; Wt 108.9 kg
[2021-04-07] MEDS ORDERED: CRANBERRY500 M3 PO (14:59)
[2021-04-07] MEDS ORDERED: DICLOFENAC SODI75 MG PO (15:00)
[2021-04-07] MEDS ORDERED: REMERON15 M2 PO (15:01)
[2021-04-07] MEDS ORDERED: OMEPRAZOLE 20 M20 M1 PO (15:02)
[2021-04-07 15:32] LABS: ABSOLUTE BASOPHILS 0.1 thou/uL (0.0-0.2); ABSOLUTE EOSINOPHILS 0.4 thou/uL (0.0-0.7); ABSOLUTE LYMPHOCYTES 1.6 thou/uL (0.8-5.3); ABSOLUTE MONOCYTES 0.8 thou/uL (0.0-1.2); ABSOLUTE NEUTROPHILS 6.2 thou/uL (1.6-8.1); BASOPHILS 1.1 %; EOSINOPHILS 4.5 %; HEMATOCRIT 39.7 % (37.0-47.0); HEMOGLOBIN 13.5 gm/dL (12.0-15.0); LYMPHOCYTES 17.9 %; MCH 32.4 pg (26.0-34.0); MCHC 34.1 g/dL (28.0-37.0); MCV 95.1 fL (80.0-100.0); MONOCYTES 8.5 %; MPV 7.1 fl. (7.2-11.1); NUCLEATED RBCS 0 /100WBC; PLATELET COUNT* 274 thou/uL (150-400); RBC 4.18 mil/uL (4.20-5.00); RDW-CV 13.6 % (10.5-14.5); WBC 9.1 thou/uL (4.0-11.0)
[2021-04-07 15:41] LABS: CALCIUM 8.8 mg/dL (8.5-10.1); CREATININE 0.8 mg/dL (0.6-1.3)
[2021-04-07 15:46] LABS: ALBUMIN 3.5 g/dL (3.4-5.0); TOTAL BILIRUBIN 0.5 mg/dL (<0.1-1.0); TOTAL PROTEIN 6.9 g/dL (6.4-8.2)
[2021-04-07 15:48] LABS: ACETAMINOPHEN < 2 ug/mL (10-30); ALCOHOL < 10 mg/dL (<10); SALICYLATE < 2.8 mg/dL (2.8-20.0)
[2021-04-07 16:38] LABS: URINE BILIRUBIN NEGATIVE (Negative); URINE BLOOD NEGATIVE (Negative); URINE CLARITY CLEAR; URINE COLOR YELLOW; URINE GLUCOSE-RANDOM NEGATIVE (Negative); URINE KETONES NEGATIVE (Negative); URINE LEUKOCYTES-REFLEX 1+ (Negative); URINE NITRITE-REFLEX NEGATIVE (Negative); URINE PROTEIN NEGATIVE (Negative); URINE UROBILINOGEN 0.2 E.U./dl (0.2-1.0)
[2021-04-07 16:46] LABS: AMP/METHAMP Negative (Negative); BARBITURATES Negative (Negative); BENZODIAZEPINES POSITIVE (Negative); COCAINE Negative (Negative); METHADONE Negative (Negative); OPIATES Negative (Negative); PCP Negative (Negative); THC Negative (Negative)
[2021-04-07 16:55] LABS: SQUAMOUS 4-10 Moderate /LPF (0-3)
[2021-04-07 16:56] LABS: CASTS None Seen /LPF (None Seen); CRYSTALS None Seen /LPF (None Seen); URINE RBC 0-2 Rare /HPF (0-2)
[2021-04-07 23:00] VITALS: BP 144/69
--- NOTE | 2021-04-08 10:27 | EKG ---
[place] [address] ELECTROCARDIOGRAM REPORT Name: CHAI MAYES Room: [facility]#: [id number] Admission: 04/07/21 Attend Phys: Discharge: 04/07/21 Date of : 59 Date of Service: 04/07/212103 Report #: [id number] THIS REPORT FOR: //name// [facility] ED Test Date: 2021-04-07 Test Time: 21:04:09 Pat Name: CHAI MAYES Department: Room: Gender: F Supervisor Cook Room: [place] : 1955 Requested By: Cheryl Daugherty Order Number: [id number] MD: Rico Dejesus Measurements Intervals [place] Rate: 71 P: -9 NE: 199 QRS: -45 QRSD: 103 T: 35 QT: 415 QTc: 451 Interpretive Statements Sinus rhythm Left anterior fascicular block Abnormal R-wave progression, early transition Left ventricular hypertrophy Compared to ECG 09/22/2020 13:30:30 Left ventricular hypertrophy now present Electronically Signed On 04-08-2021 10:26:59 CDT by Rico Dejesus [email or web address] <ELECTRONICALLY SIGNED> By: Rico Dejesus MD, [facility] 04/08/21 1026 03 03 Rico Dejesus MD, [facility] /EPI
== END 2021-04-07 23:00 ==
LOC: M.ERS 14:22
PROVIDERS: Emergency Medicine Emergency Medical Services
DX: R45.851 Suicidal ideations (principal); Z20.822 Contact with and (suspected) exposure to COVID-19; I10 Essential (primary) hypertension; F17.210 Nicotine dependence, cigarettes, uncomplicated; Z91.013 Allergy to seafood; Z88.1 Allergy status to other antibiotic agents; Z79.899 Other long term (current) drug therapy; Z98.890 Other specified postprocedural states

== ENCOUNTER 2021-05-20 19:17 | Inpatient (IN) | payer BC ==
[~2021-05-20] VITALS: Ht 160 cm; Wt 104.3 kg
[~2021-05-20 19:17] MED LIST changes: +CRANBERRY500 M3 PO; +OMEPRAZOLE 20 M20 M1 PO; +REMERON15 M2 PO
[2021-05-20 19:53] LABS: ABSOLUTE BASOPHILS 0.1 thou/uL (0.0-0.2); ABSOLUTE EOSINOPHILS 0.3 thou/uL (0.0-0.7); ABSOLUTE LYMPHOCYTES 1.9 thou/uL (0.8-5.3); ABSOLUTE MONOCYTES 0.7 thou/uL (0.0-1.2); ABSOLUTE NEUTROPHILS 5.4 thou/uL (1.6-8.1); BASOPHILS 1.1 %; EOSINOPHILS 3.4 %; HEMATOCRIT 40.1 % (37.0-47.0); HEMOGLOBIN 13.2 gm/dL (12.0-15.0); LYMPHOCYTES 22.6 %; MCH 31.3 pg (26.0-34.0); MCHC 32.9 g/dL (28.0-37.0); MCV 95.1 fL (80.0-100.0); MONOCYTES 7.9 %; NUCLEATED RBCS 0 /100WBC; PLATELET COUNT* 262 thou/uL (150-400); RBC 4.22 mil/uL (4.20-5.00); RDW-CV 13.9 % (10.5-14.5); WBC 8.3 thou/uL (4.0-11.0)
[2021-05-20 19:58] LABS: URINE BILIRUBIN NEGATIVE (Negative); URINE BLOOD NEGATIVE (Negative); URINE CLARITY CLEAR; URINE COLOR YELLOW; URINE GLUCOSE-RANDOM NEGATIVE (Negative); URINE KETONES NEGATIVE (Negative); URINE LEUKOCYTES-REFLEX NEGATIVE (Negative); URINE NITRITE-REFLEX NEGATIVE (Negative); URINE PROTEIN NEGATIVE (Negative); URINE UROBILINOGEN 0.2 E.U./dl (0.2-1.0)
[2021-05-20 20:02] LABS: CALCIUM 8.7 mg/dL (8.5-10.1); CREATININE 0.8 mg/dL (0.6-1.3); POTASSIUM 4.2 mmol/L (3.5-5.1)
[2021-05-20 20:15] LABS: AMP/METHAMP Negative (Negative); BARBITURATES Negative (Negative); BENZODIAZEPINES POSITIVE (Negative); COCAINE Negative (Negative); METHADONE Negative (Negative); OPIATES Negative (Negative); PCP Negative (Negative); THC POSITIVE (Negative)
[2021-05-20 20:17] LABS: ALBUMIN 3.9 g/dL (3.4-5.0); MAGNESIUM 2.1 mg/dL (1.8-2.4); TOTAL BILIRUBIN 0.5 mg/dL (<0.1-1.0); TOTAL PROTEIN 7.1 g/dL (6.4-8.2)
--- NOTE | 2021-05-21 11:34 | EKG ---
[place] [address] ELECTROCARDIOGRAM REPORT Name: CHAI MAYES Room: [place] [address] ADM IN .R.#: [id number] Admission: 05/21/21 Attend Phys: Meghann Blue, Discharge: Date of : 59 Date of Service: 05/20/211923 Report #: [id number] THIS REPORT FOR: //name// [facility] ED Test Date: 2021-05-20 Test Time: 19:24:05 Pat Name: CHAI MAYES Department: Room: [facility] Gender: F Loom Operator: [place] : 1955 Requested By: Delia Blair Order Number: [id number] MD: Yuniel Anders Measurements Intervals [place] Rate: 68 P: -1 CA: 209 QRS: -39 QRSD: 107 T: 15 QT: 404 QTc: 430 Interpretive Statements Sinus rhythm Abnormal R-wave progression, early transition Left ventricular hypertrophy Baseline wander in lead(s) III,aVL,aVF Compared to ECG 04/07/2021 21:04:09 Left anterior fascicular block no longer present Electronically Signed On 05-21-2021 11:34:44 CDT by Yuniel Anders [email or web address] <ELECTRONICALLY SIGNED> By: Shannan Anders MD, [facility] 05/21/21 1134 23 23 Shannan Anders MD, [facility] /EPI
[2021-05-21 13:16] VITALS: BP 130/80
[2021-05-21 16:30] VITALS: BP 123/75
[2021-05-21 20:17] VITALS: BP 140/73
[2021-05-22] VITALS (7 sets, daily range): BP systolic 107–144; BP diastolic 65–109
[2021-05-22 05:09] LABS: ABSOLUTE BASOPHILS 0.1 thou/uL (0.0-0.2); ABSOLUTE EOSINOPHILS 0.2 thou/uL (0.0-0.7); ABSOLUTE LYMPHOCYTES 2.2 thou/uL (0.8-5.3); ABSOLUTE MONOCYTES 0.8 thou/uL (0.0-1.2); ABSOLUTE NEUTROPHILS 5.4 thou/uL (1.6-8.1); BASOPHILS 0.8 %; HEMATOCRIT 40.9 % (37.0-47.0); HEMOGLOBIN 13.9 gm/dL (12.0-15.0); MCH 32.1 pg (26.0-34.0); MCHC 34.1 g/dL (28.0-37.0); MCV 94.1 fL (80.0-100.0); MONOCYTES 9.1 %; MPV 6.9 fl. (7.2-11.1); NUCLEATED RBCS 0 /100WBC; PLATELET COUNT* 258 thou/uL (150-400); POLYS 62.1 %; RBC 4.35 mil/uL (4.20-5.00); RDW-CV 13.6 % (10.5-14.5); WBC 8.6 thou/uL (4.0-11.0)
[2021-05-22 05:10] LABS: CALCIUM 8.6 mg/dL (8.5-10.1); CREATININE 0.7 mg/dL (0.6-1.3); POTASSIUM 3.5 mmol/L (3.5-5.1)
== END 2021-05-22 19:25 | disposition home or self-care (01) | DRG 917 ==
LOC: M.ERS 19:17 → M.TBA-ER 05-21 05:03 → M.ERS 05-21 05:03 → M.TBA-ER 05-21 05:52 → M.2W 05-21 16:25
PROVIDERS: Emergency Medicine; Internal Medicine; ADMIT Internal Medicine; ATTEND Internal Medicine
DX: T42.4X1A Poisoning by benzodiazepines, accidental (unintentional), initial encounter (principal); G92 Toxic encephalopathy; E66.2 Morbid (severe) obesity with alveolar hypoventilation; Z68.41 Body mass index [BMI] 40.0-44.9, adult; I10 Essential (primary) hypertension; G89.29 Other chronic pain; M47.9 Spondylosis, unspecified; G62.9 Polyneuropathy, unspecified; F03.90 Unspecified dementia, unspecified severity, without behavioral disturbance, psychotic disturbance, mood disturbance, and anxiety; F12.10 Cannabis abuse, uncomplicated; Z20.822 Contact with and (suspected) exposure to COVID-19; Z87.891 Personal history of nicotine dependence; Z85.3 Personal history of malignant neoplasm of breast; Z85.841 Personal history of malignant neoplasm of brain; Z92.21 Personal history of antineoplastic chemotherapy; Z92.3 Personal history of irradiation; Z79.899 Other long term (current) drug therapy; Z91.013 Allergy to seafood; Z88.8 Allergy status to other drugs, medicaments and biological substances; Z91.018 Allergy to other foods; Y92.89 Other specified places as the place of occurrence of the external cause

== ENCOUNTER → 2021-06-29 | Outpatient (CLI) | payer BC | LOC: M.RAD 06-24 13:00 | PROVIDERS: ATTEND Nurse Practitioner Family | DX: Z12.31 Encounter for screening mammogram for malignant neoplasm of breast (principal) ==